=== PATIENT | female | born 1955 | race Caucasian/White ===

== ENCOUNTER 2020-09-21 08:35 | Emergency (ER) | payer MEDICARE, OTHER ==
[~2020-09-21] VITALS: Ht 165.1 cm; Wt 71.8 kg
--- NOTE | 2020-09-21 08:57 | NUR ---
FIRST CONTACT WITH PT : "FEELNG VERY POOR, N/V,D, WEAKNESS, CHILLS, [place] SINCE SATURDAY AM." PT TO ROOM WITH STEADY GAIT. DAUGHTER AT BEDSIDE. ATTACHED TO MONITORS. STEPHANIE. KEDAR. AWAITING ORDERS.
--- NOTE | 2020-09-21 08:59 | NUR ---
DR. WHALEY AT BEDSIDE FOR EVALUATION.
[2020-09-21] MEDS ORDERED: DIPHENHYDRAMINE 50 MG/ML, 1ML ONE (09:47)
[2020-09-21] MEDS ORDERED: KETOROLAC 30 MG/1 ML ONE (09:48)
[2020-09-21] MEDS ORDERED: METOCLOPRAMIDE 5 MG/ML, 2ML ONE (09:48)
[2020-09-21 09:50] LABS: BASOPHILS % (AUTO) 1 % (0-1); EOSINOPHILS % (AUTO) 0 % (1-7); LYMPHOCYTES % (AUTO) 6 % (22-44); MEAN CORPUSCULAR HEMOGLOBIN 34.1 pg (27.0-34.8); MEAN CORPUSCULAR HGB CONC 34.8 g/dL (32.4-35.8); MEAN PLATELET VOLUME 8.9 fL (7.4-10.4); MONOCYTES % (AUTO) 5 % (2-9); NEUTROPHILS % (AUTO) 88 % (42-75); PLATELET COUNT 317 x10^3/uL (130-400); RED BLOOD COUNT 4.29 x10^6/uL (3.82-5.3); RED CELL DISTRIBUTION WIDTH 12.5 % (9.6-15.2)
[2020-09-21 09:52] LABS: MICROSCOPIC NOT IND
--- NOTE | 2020-09-21 09:57 | NUR ---
PT MEDICATED PER EMAR. VSS. TRUONGN.
[2020-09-21 09:59] LABS: ALANINE AMINOTRANSFERASE 24 U/L (12-78); ALBUMIN 3.8 g/dL (3.4-5.0); ANION GAP 7 mmol/L (5-15); CALCIUM 9.6 mg/dL (8.5-10.1); CHLORIDE 101 mmol/L (98-107); CREATININE 0.82 mg/dL (0.55-1.02)
[2020-09-21 10:01] LABS: ALKALINE PHOSPHATASE 100 U/L (45-117); BILIRUBIN,TOTAL 0.4 mg/dL (0.2-1.0)
[2020-09-21] MEDS ORDERED: KETOROLAC 30 MG/1 ML IVPush ONE (10:30)
[2020-09-21] MEDS ORDERED: METOCLOPRAMIDE 5 MG/ML, 2ML IVPush ONE (10:30)
[2020-09-21] MEDS ORDERED: DIPHENHYDRAMINE 50 MG/ML, 1ML IVPush ONE (10:30)
[2020-09-21] MEDS ORDERED: SODIUM CHLORIDE FLUSH 10ML SYR IVF ONE (11:00)
[2020-09-21 11:40] VITALS: BP 121/68
--- NOTE | 2020-09-21 11:46 | NUR ---
Patient/Caregiver given discharge instructions and they have confirmed that they understand the instructions. Patient ambulatory with steady gait. NAD, all questions answered appropriately, denies additional needs at this time. No personal belongings left in room after discharge.
== END 2020-09-21 11:47 | disposition home or self-care (01) ==
LOC: ED 10:21
DX: R11.2 Nausea with vomiting, unspecified (principal); Z20.822 Contact with and (suspected) exposure to COVID-19; R19.7 Diarrhea, unspecified; E87.1 Hypo-osmolality and hyponatremia; R51.9 Headache, unspecified
CPT/HCPCS: 36415; 80053; 81003; 83690; 85025; 96374; 96375; 99284; J1200; J1885; J2765; U0003; U0005